=== PATIENT | female | born 1995 | race African-American/Black ===

== ENCOUNTER 2020-07-17 01:24 | Inpatient (IN) ==
[2020-07-17] MEDS ORDERED: BUTORPHANOL 2 MG/ML VIAL IV PRN (01:37)
[2020-07-17] MEDS ORDERED: ONDANSETRON 4 MG/2 ML VIAL IV PRN ×2 (01:37→04:15)
[2020-07-17] MEDS ORDERED: LACTATED RINGERS 1,000 ML IV ONE (01:39)
[2020-07-17] MEDS ORDERED: hydrOXYzine HCL 25 MG/1 ML VIAL IM PRN (01:39)
[2020-07-17] MEDS ORDERED: ePHEDrine 50 MG/ML VIAL IV PRN (01:39)
[2020-07-17] MEDS ORDERED: NALOXONE 0.4 MG/ML VIAL IV PRN (01:39)
[2020-07-17] MEDS ORDERED: diphenhydrAMINE 50 MG/1 ML VIAL IV PRN ×2 (01:39)
[2020-07-17] MEDS ORDERED: CITRIC ACID/SODIUM CITRATE 30 ML UDCUP PO ONE (01:39)
[2020-07-17] MEDS ORDERED: FAMOTIDINE 20 MG/2 ML VIAL IV ONE (01:39)
[2020-07-17] MEDS ORDERED: OXYTOCIN/LR 20 UNIT/1,000 ML BAG IV ONE ×2 (01:48→04:15)
[2020-07-17] MEDS ORDERED: TRANEXAMIC ACID 1,000 MG/10 ML VIAL ONE (01:49)
[2020-07-17] MEDS ORDERED: METHYLERGONOVINE 0.2 MG/1 ML AMP ONE (01:49)
[2020-07-17] MEDS ORDERED: CARBOPROST TROMETHAMINE 250 MCG/ML AMP IM ONE (01:49)
[2020-07-17] MEDS ORDERED: miSOPROStoL 200 MCG TABLET ONE (01:49)
[2020-07-17] MEDS ORDERED: LIDOCAINE 1% 50 ML VIAL ONE (01:50)
[2020-07-17 01:54] LABS: Basophils % 0.5 % (0.0-0.8); Eosinophils # 0.2 10*3/uL (0.0-0.87); Hematocrit 27.2 VOL% (35.7-47.0); Hemoglobin 7.8 GM/DL (12.0-16.0); Immature Granulocytes % 0.6 %; Immature Granulocytes Absolute 0.05 #; Lymphocytes # 2.7 10*3/uL (1.4-4.0); Lymphocytes % 32.2 % (21.3-54.2); Mean Corpuscular HGB Conc 28.7 GM/DL (32-36); Mean Corpuscular Volume 71.6 FL (87-102); Mean Platelet Volume 8.4 FL (9.6-12.0); Monocytes % 7.3 % (1.7-12.7); NRBC # 0.02 10*3/uL; Neutrophils % 57.4 % (38.7-73.9); Platelet Count 325 T/CUMM (130-400); Red Cell Distribution Width 16.7 % (9.3-17.3); White Blood Count 8.3 T/CUMM (4-12)
[2020-07-17] MEDS ORDERED: fentaNYL 2 MCG/ROPIV 0.2% EPID 100 ML EPIDURAL SCH (02:00)
[2020-07-17] MEDS ORDERED: LACTATED RINGERS 1,000 ML IV SCH (02:00)
[2020-07-17 02:10] LABS: Bilirubin,Urine Negative (Negative); Blood, Urine Small mg/dL (Negative); Glucose,Urine (UA) Negative (Negative); Ketones,Urine Negative (Negative); Mucus,Urine Occasional /LPF (Occasional); Nitrite,Urine Negative (Negative); Protein,Urine Negative; RBC,Urine 1 /HPF (0-4); Squamous Epithelial Cell,Urine Few /HPF (0-10); Urine Appearance Slightly Hazy (Clear); Urine Color Yellow (Yellow); Urine Specific Gravity 1.018 (1.001-1.035); WBC,Urine 50 /HPF (0-6)
[2020-07-17 02:13] LABS: Albumin 2.9 G/DL (3.4-5.0); Bilirubin,Total 0.4 MG/DL (0.2-1.0); Calcium 8.8 MG/DL (8.5-10.1); Osmolality,Calculated 266.2 MOS/KG (273-304); Potassium 3.7 MMOL/L (3.5-5.1); Total Protein 7.5 G/DL (6.4-8.2)
[2020-07-17] MEDS ORDERED: miSOPROStoL 200 MCG TABLET RECTAL ONE (03:42)
[2020-07-17] MEDS ORDERED: DIPH/TET/ACEL PERT BOOSTER VACCINE 0.5 ML VIAL IM ONE (04:15)
[2020-07-17] MEDS ORDERED: MEASLES/MUMPS/RUBELLA VACCINE 0.5 ML VIAL SUBCUT ONE (04:15)
[2020-07-17] MEDS ORDERED: LANOLIN 50% CREAM 0.3 OZ TUBE TOP PRN (04:15)
[2020-07-17] MEDS ORDERED: ACETAMINOPHEN 325 MG TABLET PO PRN (04:15)
[2020-07-17] MEDS ORDERED: BISACODYL 10 MG SUPP RECTAL PRN (04:15)
[2020-07-17] MEDS ORDERED: BENZOCAINE 20%/MENTHOL 0.5% SPRAY 56 GM CAN TOP PRN (04:15)
[2020-07-17] MEDS ORDERED: HYDROCORTISONE 2.5% RECTAL CREAM 30 GM TUBE TOP PRN (04:15)
[2020-07-17] MEDS ORDERED: RHO(D) IMMUNE GLOBULIN 300 MCG SYRINGE IM ONE (04:15)
[2020-07-17] MEDS ORDERED: WITCH HAZEL PADS 100/JAR TOP PRN (04:15)
[2020-07-17 05:04] LABS: Hypochromasia 1+
[2020-07-17 05:05] LABS: Anisocytosis 1+; Microcytosis 1+; Ovalocytes Slight; Platelet Estimate Normal
[2020-07-17] MEDS: IBUPROFEN 800 MG TABLET PO PRN ×3 (07:48→21:12)
[2020-07-17] MEDS: oxyCODONE/ACETAMINOPHEN 5-325 MG TABLET PO PRN ×2 (07:50→21:13)
[2020-07-17] MEDS: DOCUSATE SODIUM 100 MG CAPSULE PO SCH ×2 (08:14→21:13)
[2020-07-17] MEDS: FERROUS SULFATE 325 MG TABLET PO SCH ×3 (08:14→21:13)
[2020-07-17 09:04] LABS: Basophils # 0.1 10*3/uL (0.0-0.2); Basophils % 0.3 % (0.0-0.8); Eosinophils # 0.1 10*3/uL (0.0-0.87); Eosinophils % 0.3 % (0.00-10.9); Hematocrit 23.3 VOL% (35.7-47.0); Hemoglobin 6.8 GM/DL (12.0-16.0); Immature Granulocytes % 0.6 %; Immature Granulocytes Absolute 0.08 #; Lymphocytes # 2.6 10*3/uL (1.4-4.0); Lymphocytes % 18.2 % (21.3-54.2); Mean Corpuscular HGB Conc 29.2 GM/DL (32-36); Mean Corpuscular Volume 71.3 FL (87-102); Mean Platelet Volume 8.7 FL (9.6-12.0); Monocytes % 7.7 % (1.7-12.7); Neutrophils % 72.9 % (38.7-73.9); Platelet Count 293 T/CUMM (130-400); Red Blood Count 3.27 MC/CUMM (3.8-5.5); Red Cell Distribution Width 16.5 % (9.3-17.3); White Blood Count 14.4 T/CUMM (4-12)
[2020-07-17] MEDS ORDERED: SODIUM CHLORIDE 0.9% 1,000 ML IV PRN (19:27)
[2020-07-18 06:54] LABS: Basophils # 0.1 10*3/uL (0.0-0.2); Basophils % 0.8 % (0.0-0.8); Eosinophils # 0.2 10*3/uL (0.0-0.87); Eosinophils % 1.8 % (0.00-10.9); Hematocrit 32.3 VOL% (35.7-47.0); Immature Granulocytes % 1.3 %; Immature Granulocytes Absolute 0.17 #; Lymphocytes # 3.7 10*3/uL (1.4-4.0); Lymphocytes % 27.6 % (21.3-54.2); Mean Corpuscular HGB Conc 29.7 GM/DL (32-36); Mean Corpuscular Volume 74.8 FL (87-102); Monocytes % 6.2 % (1.7-12.7); NRBC # 0.03 10*3/uL; Neutrophils % 62.3 % (38.7-73.9); Platelet Count 299 T/CUMM (130-400); Red Cell Distribution Width 18.9 % (9.3-17.3); White Blood Count 13.3 T/CUMM (4-12)
[2020-07-18 06:57] LABS: Red Blood Count 4.32 MC/CUMM (3.8-5.5)
[2020-07-18 06:58] LABS: Hemoglobin 9.6 GM/DL (12.0-16.0)
[2020-07-18 07:34] VITALS: BP 107/65
[2020-07-18] MEDS: DOCUSATE SODIUM 100 MG CAPSULE PO SCH (09:52)
[2020-07-18] MEDS: FERROUS SULFATE 325 MG TABLET PO SCH ×2 (09:52→16:29)
[2020-07-18] MEDS: oxyCODONE/ACETAMINOPHEN 5-325 MG TABLET PO PRN (12:01)
== END 2020-07-18 16:15 | disposition home or self-care (01) | DRG 542 ==
LOC: N.LDOUT 01:24 → N.LD 01:25 → N.OB 07:48
PROVIDERS: ADMIT Obstetrics & Gynecology; ATTEND Obstetrics & Gynecology

== ENCOUNTER 2021-05-13 23:43 | Observation (INO) ==
[2021-05-14] MEDS ORDERED: SODIUM CHLORIDE 0.9% 1,000 ML IV STA (00:06)
[2021-05-14] MEDS ORDERED: MORPHINE 2 MG/1 ML SYRINGE IV STA (00:21)
[2021-05-14] MEDS ORDERED: ONDANSETRON 4 MG/2 ML VIAL IV ONE (00:21)
[2021-05-14] MEDS ORDERED: MAGNESIUM HYDROXIDE SUSP 30 ML UDCUP PO PRN (00:38)
[2021-05-14] MEDS ORDERED: ACETAMINOPHEN 325 MG TABLET PO PRN (00:38)
[2021-05-14] MEDS ORDERED: ONDANSETRON 4 MG/2 ML VIAL IV PRN (00:38)
[2021-05-14 01:04] LABS: Basophils % 0.1 % (0.0-0.8); Eosinophils % 0.1 % (0.00-10.9); Hematocrit 27.4 VOL% (35.7-47.0); Hemoglobin 9.2 GM/DL (12.0-16.0); Immature Granulocytes % 0.3 %; Immature Granulocytes Absolute 0.05 #; Lymphocytes % 6.7 % (21.3-54.2); Mean Corpuscular HGB Conc 33.6 GM/DL (32-36); Mean Corpuscular Volume 83.5 FL (87-102); Mean Platelet Volume 9.2 FL (9.6-12.0); Monocytes % 5.1 % (1.7-12.7); Neutrophils % 87.7 % (38.7-73.9); Platelet Count 237 T/CUMM (130-400); Red Blood Count 3.28 MC/CUMM (3.8-5.5); Red Cell Distribution Width 12.8 % (9.3-17.3); White Blood Count 15.5 T/CUMM (4-12)
[2021-05-14 01:44] LABS: Alanine Aminotransferase 12 U/L (13-56); Albumin 2.5 G/DL (3.4-5.0); Alkaline Phosphatase 63 U/L (45-117); Aspartate Amino Transferase 12 U/L (0-37); Bilirubin,Total < 0.39 MG/DL (0.20-1.00); Blood Urea Nitrogen 8 MG/DL (7-18); Calcium 8.3 MG/DL (8.5-10.1); Carbon Dioxide 24 MMOL/L (21-32); Estimated Glom Filtration Rate 139 ML/MIN; Glucose 117 MG/DL (74-106); Osmolality,Calculated 266.2 MOS/KG (273-304); Potassium 3.4 MMOL/L (3.5-5.1); Sodium 134 MMOL/L (136-145); Total Protein 6.2 G/DL (6.4-8.2)
[2021-05-14] MEDS ORDERED: OXYTOCIN 10 UNIT/ML VIAL IV ONE (02:09)
[2021-05-14] MEDS ORDERED: OXYTOCIN 10 UNIT/ML VIAL ONE (02:19)
[2021-05-14] MEDS: LACTATED RINGERS 1,000 ML IV SCH ×2 (02:20→09:00)
[2021-05-14] MEDS: OXYTOCIN/LR 30 UNIT/1,000 ML BAG IV PRN ×2 (02:25→11:16)
[2021-05-14] MEDS: IBUPROFEN 800 MG TABLET PO PRN ×3 (02:48→18:10)
[2021-05-14 04:59] LABS: Basophils % 0.1 % (0.0-0.8); Hematocrit 23.3 VOL% (35.7-47.0); Hemoglobin 7.8 GM/DL (12.0-16.0); Immature Granulocytes % 0.4 %; Immature Granulocytes Absolute 0.06 #; Lymphocytes # 0.8 10*3/uL (1.4-4.0); Lymphocytes % 5.5 % (21.3-54.2); Mean Corpuscular HGB Conc 33.5 GM/DL (32-36); Mean Corpuscular Volume 83.5 FL (87-102); Mean Platelet Volume 9.3 FL (9.6-12.0); Monocytes % 3.1 % (1.7-12.7); Neutrophils % 90.9 % (38.7-73.9); Platelet Count 224 T/CUMM (130-400); Red Blood Count 2.79 MC/CUMM (3.8-5.5); Red Cell Distribution Width 12.7 % (9.3-17.3); White Blood Count 15.3 T/CUMM (4-12)
[2021-05-14 05:24] LABS: Band Neutrophils 3 % (0-10); Hypochromia 1+; Lymphocytes 5 % (20-55); Microcytosis 1+; Platelet Estimate Adequate; Segmented Neutrophils 91 % (50-85); Total Cells Counted 100
[2021-05-14] MEDS ORDERED: SODIUM CHLORIDE 0.9% 1,000 ML IV PRN (06:34)
[2021-05-14 12:29] LABS: Hemoglobin 8.1 GM/DL (12.0-16.0)
[2021-05-15 04:26] LABS: Bilirubin,Urine Negative (Negative); Blood, Urine Large mg/dL (Negative); Glucose,Urine (UA) Negative (Negative); Ketones,Urine Negative (Negative); Mucus,Urine Occasional /LPF (Occasional); Nitrite,Urine Negative (Negative); Protein,Urine Negative; Squamous Epithelial Cell,Urine Occasional /HPF (0-10); Urine Appearance CLEAR (Clear); Urine Color Yellow (Yellow); Urine Specific Gravity 1.014 (1.001-1.035); Urine Urobilinogen < 2.0 EU/DL (<2.0)
[2021-05-15 08:29] VITALS: BP 100/62
== END 2021-05-15 11:08 | disposition home or self-care (01) ==
LOC: EDUNIT# → EDBD → N.ED 23:43 → N.EDINP 23:43 → N.LD 05-14 02:13 → N.OB 05-14 06:50
PROVIDERS: ADMIT Obstetrics & Gynecology; ATTEND Obstetrics & Gynecology